=== PATIENT | female | born 1945 | race Caucasian/White ===

== ENCOUNTER → 2016-09-17 | Outpatient (REF) ==
[~2016-09-17] MED LIST: ACIPHEX20 MG PO; AMBIEN10 MG PO; ASPIRIN E.C. 8181 MG PO; B-121000 MCG PO; BENAZEPRIL20 MG PO; BLADDER MEDICATION; BUPIVACAINE; BUPROBAN150 MG PO; CALCIUM CARBON500 MG PO; CALCIUM1 CAP PO; CARAFATE 1GM1 G PO; CARDI-OMEGA1000 MG PO; CEFTIN500 MG PO; CYANOCOBAL1000 MCG/1 IM; CYMBALTA 30MG30 MG PO; CYMBALTA 60MG60 MG PO; CYMBALTA60 M1 PO; CYMBALTA60 MG PO; DESYREL 50MG50 MG PO; DIALUDIDPCA ICA; DULCOLAX S10 MG/SUPP; DULCOLAX TAB5 MG PO; DULCOLAX10 MG RC; ENTOCORT EC3 MG PO; FAMILY PHARMAC325 MG PO; FERROUS SULFAT325 M2 PO; HALDOL .5M0.5 MG/TAB PO; HYDROCODONE/APAP; K-DUR20 MEQ PO; KLONOPIN 0.5MG0.5 MG PO; KLOR-CON 1010 MEQ; KLOR-CON 1010 MEQ PO; KLOR-CON M2020 MEQ PO; LASIX 20MG TABL20 MG PO; LASIX 40MG TABL40 MG PO; LASIX20 MG PO; LEVAQUIN 5500 MG/TA1 PO; LIORESAL 1010 MG/TAB PO; LIORESAL I INT; LOMOTIL 0.025 M1 TAB PO; LUNESTA 1MG TAB1 MG PO; LUNESTA3 MG PO; LYRICA 100MG C100 M1 PO; LYRICA 50MG CAP50 MG PO; MACROBID 1100 MG/CAP PO; MAG-OX 400400 MG/TAB PO; MILK OF MA400 MG/51 PO; MULTI VITAMINS1 TAB PO; MULTIPLE VITAMI1 CAP PO; MULTIVITAMIN1 TA1 PO; MYLANTA 150 ML150 M1 PO; NORCO 325 MG-51 TAB PO; NORVASC2.5 MG PO; OMEGA 31000 MG PO; OMEPRAZOLE DR20 MG PO; OS-CAL 500500 M1 PO; OSCAL 500 TAB500 MG PO; OSCAL 500MG/VI500 MG PO; PENTASA500 MG PO; PERCOCET 325 MG1 TA2 PO; PERCOCET 325 MG1 TAB PO; POTASSIUM CH2 MEQ/ML PO; PREDNISONE20 MG PO; RECLAST5 MG/100 M; RECLAST5 MG/100 M IV; ROXICODONE5 MG PO; SEE INSTRUCTIONS IT; SYNTHROID 0.0.025 MG PO; SYNTHROID0.05 MG/TA PO; SYNTHROID0.075 MG/T PO; SYNTHROID0.1 MG/TAB PO; TRAZADONE HYDR100 MG PO; TRAZODONE50 MG PO; TYLENOL 500MG500 MG PO; TYLENOL SINUS 31 TAB PO; TYLENOL SU650 MG/SUP RC; UNABLE; VANCOCIN H125 MG/CAP PO; VANCOMYCIN PO; VITAMIN B1100 MCG/ML IM; VITAMIN B11000 MCG/M IM; VITAMIN C BUFF500 MG PO; VITAMIN D1000 IU PO; VITAMIN D2000 I1 PO; VITAMIN D32000 I1 PO; VITAMINC500CH PO; WELLBUTRIN XL150 MG PO; XARELTO10 MG PO; [UNRECOGNIZED DRUG - OTHER] INT
[2016-09-17 18:06] LABS: ADJUSTED CALCIUM 9.8 mg/dL (8.4-10.2); ALBUMIN 2.1 gm/dL (3.5-5.0); BILIRUBIN,TOTAL 0.3 mg/dL (0.0-1.0); CALCIUM 8.3 mg/dL (8.4-10.2); CREATININE, serum 1.6 mg/dL (0.52-1.25); POTASSIUM 3.4 mmol/L (3.4-5.0)
[2016-09-17 18:18] LABS: BASO # 0.1 (0.0-0.2); BASO % 0.6 % (0.0-2.0); EOS # 0.2 (0.0-0.7); EOS % 2.1 % (0-4.0); GRAN # 5.7 (1.4-6.5); LYMPH # 2.1 (1.2-3.4); MEAN CELL VOLUME 95 fl (80.0-100.0); MEAN CORPUSCULAR HGB CONC 31 g/dl (33.0-37.0); MEAN PLATELET VOLUME 10.7 fl (7.4-10.4); MONO # 0.8 (0.1-0.6); MONO % 8.8 % (1.7-9.3); PLATELET COUNT 400 K/mm3 (130-400); REDCELL DISTRIBUTION WIDTH-CV 15.9 % (11.5-14.5); WHITE BLOOD COUNT 8.9 K/mm3 (4.8-10.8)
[2016-09-17 18:19] LABS: HEMATOCRIT 27.5 % (37.0-47.0); HEMOGLOBIN 8.6 g/dl (12.5-16.0); MEAN CORPUSCULAR HEMOGLOBIN 30 pg (27.0-31.0)
== END ==
LOC: ZLAB.STJ 17:40
PROVIDERS: Family Medicine
DX: Z01.89 Encounter for other specified special examinations (principal)

== ENCOUNTER 2017-12-04 18:40 | Inpatient (IN) | payer MEDICARE, BC, OTHER ==
[~2017-12-04] VITALS: Ht 165.1 cm; Wt 68.9 kg
[~2017-12-04 18:40] MED LIST changes: -KLOR-CON 1010 MEQ
[2017-12-04 19:46] LABS: BASO % 0.3 % (0.0-2.0); EOS % 0.2 % (0-4.0); GRAN # 9.6 (1.4-6.5); GRAN % 76.4 % (42.2-75.2); LYMPH # 2.1 (1.2-3.4); LYMPH % 16.4 % (20.0-51.0); MEAN CELL VOLUME 98 fl (80.0-100.0); MEAN CORPUSCULAR HGB CONC 32 g/dl (33.0-37.0); MEAN PLATELET VOLUME 9.7 fl (7.4-10.4); MONO # 0.8 (0.1-0.6); MONO % 6.3 % (1.7-9.3); PLATELET COUNT 239 K/mm3 (130-400); RED BLOOD COUNT 3.36 M/mm3 (4.10-5.30); REDCELL DISTRIBUTION WIDTH-CV 14.5 % (11.5-14.5)
[2017-12-04 19:47] LABS: HEMOGLOBIN 10.5 g/dl (12.5-16.0); MEAN CORPUSCULAR HEMOGLOBIN 31 pg (27.0-31.0)
[2017-12-04 19:52] LABS: PROTHROMBIN TIME 12.1 SECONDS (9.7-12.8)
[2017-12-04 19:57] LABS: ALANINE AMINOTRANSFERASE 36 U/L (9-52); ALBUMIN 3.4 gm/dL (3.5-5.0); ALKALINE PHOSPHATASE 97 U/L (50-136); ANION GAP 13 mmol/L (7-16); AST,SGOT 23 U/L (15-37); BILIRUBIN,TOTAL 0.4 mg/dL (0.0-1.0); BLOOD UREA NITROGEN 28 mg/dL (7-17); CALCIUM 8.7 mg/dL (8.4-10.2); CARBON DIOXIDE 19 mmol/L (22-30); CHLORIDE 109 mmol/L (98-107); CREATINE KINASE 260 U/L (30-135); CREATININE, serum 2.39 mg/dL (0.52-1.25); GLUCOSE 106 mg/dL (74-106); SODIUM 141 mmol/L (137-145); TOTAL PROTEIN 6.9 gm/dL (6.4-8.2)
[2017-12-04 20:08] LABS: TROPONIN-I < 0.012 ng/mL (0.000-0.034)
[2017-12-04 20:30] LABS: COLLECTION METHOD CLEAN CATCH
[2017-12-04 20:42] LABS: MUCOUS Present /lpf; PH 5 (5-8); SQUAMOUS EPITHELIAL None Seen /hpf; URINE APPEARANCE Clear; URINE BACTERIA None Seen /hpf; URINE BILIRUBIN Negative (NEGATIVE); URINE BLOOD 2+ (NEGATIVE); URINE COLOR Yellow; URINE GLUCOSE Negative (NEGATIVE); URINE KETONE Negative (NEGATIVE); URINE LEUKOCYTE ESTERASE Negative (NEGATIVE); URINE NITRATE Negative (NEGATIVE); URINE PROTEIN(semi-quant) Negative (NEGATIVE); URINE UROBILINOGEN Negative (NEGATIVE)
[2017-12-04] MEDS ORDERED: LASIX 20MG TABL20 MG PO (21:53)
[2017-12-04] MEDS ORDERED: DIALUDIDPCA IL (21:55)
[2017-12-04] MEDS ORDERED: LIORESAL I2000 MCG/1 IL (21:57)
[2017-12-04] MEDS ORDERED: MAGNESIUM250 M1 PO (21:59)
[2017-12-04 22:16] VITALS: BP 125/53; PULSE 69; TEMP 97.4
[2017-12-05] VITALS (7 sets, daily range): BP systolic 96–128; BP diastolic 38–63; PULSE 69–86; TEMP 97.3–98.8
[2017-12-05 07:47] LABS: BASO # 0.1 (0.0-0.2); BASO % 0.4 % (0.0-2.0); EOS # 0.2 (0.0-0.7); EOS % 1.8 % (0-4.0); GRAN # 8.1 (1.4-6.5); GRAN % 72.8 % (42.2-75.2); LYMPH % 18.2 % (20.0-51.0); MEAN CELL VOLUME 99 fl (80.0-100.0); MEAN CORPUSCULAR HGB CONC 32 g/dl (33.0-37.0); MEAN PLATELET VOLUME 9.8 fl (7.4-10.4); MONO # 0.7 (0.1-0.6); MONO % 6.4 % (1.7-9.3); PLATELET COUNT 251 K/mm3 (130-400); RED BLOOD COUNT 3.11 M/mm3 (4.10-5.30); REDCELL DISTRIBUTION WIDTH-CV 14.5 % (11.5-14.5)
[2017-12-05 07:48] LABS: HEMATOCRIT 30.8 % (37.0-47.0); HEMOGLOBIN 9.7 g/dl (12.5-16.0); MEAN CORPUSCULAR HEMOGLOBIN 31 pg (27.0-31.0)
[2017-12-05 08:01] LABS: ALBUMIN 2.9 gm/dL (3.5-5.0); BILIRUBIN,TOTAL 0.3 mg/dL (0.0-1.0); C-REACTIVE PROTEIN 5.5 mg/dL (0.0-0.9); CALCIUM 8.1 mg/dL (8.4-10.2); CHOLESTEROL RISK RATIO 2.7; CREATININE, serum 1.9 mg/dL (0.52-1.25); POTASSIUM 3.4 mmol/L (3.4-5.0); TOTAL PROTEIN 6.1 gm/dL (6.4-8.2)
[2017-12-05 14:11] LABS: FOLATE (FOLIC ACID) 18.8 ng/mL (7.0-31.4)
[2017-12-05 22:24] LABS: AMMONIA < 9 umol/L (11-35)
[2017-12-05 22:37] LABS: ARTERIAL BLD GAS O2 SATURATION 93.3 % (92-100); ARTERIAL BLD GAS TCO2 CT 19.9; ARTERIAL BLOOD GAS BASE EXCESS -6.8 (-2-2); ARTERIAL BLOOD GAS HCO3 18.8 meq/L (22-26); ARTERIAL BLOOD GAS PCO2 37.4 mmHg (35-45); ARTERIAL BLOOD GAS PO2 68.3 mmHg (80-100); ARTERIAL BLOOD GAS pH 7.32 (7.35-7.45)
[2017-12-06] VITALS (7 sets, daily range): BP systolic 118–153; BP diastolic 55–79; PULSE 53–90; TEMP 97.5–98
[2017-12-06 06:54] LABS: BASO % 0.4 % (0.0-2.0); EOS # 0.1 (0.0-0.7); EOS % 1.3 % (0-4.0); GRAN # 6.6 (1.4-6.5); LYMPH # 1.9 (1.2-3.4); LYMPH % 19.9 % (20.0-51.0); MEAN CELL VOLUME 101 fl (80.0-100.0); MEAN CORPUSCULAR HGB CONC 31 g/dl (33.0-37.0); MEAN PLATELET VOLUME 10.9 fl (7.4-10.4); MONO # 0.8 (0.1-0.6); PLATELET COUNT 247 K/mm3 (130-400); RED BLOOD COUNT 3.16 M/mm3 (4.10-5.30); REDCELL DISTRIBUTION WIDTH-CV 14.5 % (11.5-14.5)
[2017-12-06 07:07] LABS: CALCIUM 8.3 mg/dL (8.4-10.2); CREATININE, serum 1.59 mg/dL (0.52-1.25); PHOSPHOROUS 3.3 mg/dL (2.5-4.5); POTASSIUM 3.2 mmol/L (3.4-5.0)
[2017-12-06 07:13] LABS: HEMOGLOBIN 9.9 g/dl (12.5-16.0); MEAN CORPUSCULAR HEMOGLOBIN 31 pg (27.0-31.0)
[2017-12-06 23:35] LABS: RPR (VDRL) Non-reactive (())
[2017-12-07 00:29] LABS: ANA SCREEN with REFLEX Positive (Negative)
[2017-12-07 04:50] VITALS: BP 141/62; PULSE 81; TEMP 98.8
[2017-12-07 06:38] LABS: BASO % 0.5 % (0.0-2.0); EOS # 0.2 (0.0-0.7); EOS % 2.4 % (0-4.0); GRAN % 62.7 % (42.2-75.2); LYMPH # 2.1 (1.2-3.4); MEAN CELL VOLUME 99 fl (80.0-100.0); MEAN CORPUSCULAR HGB CONC 32 g/dl (33.0-37.0); MEAN PLATELET VOLUME 10.2 fl (7.4-10.4); MONO # 0.6 (0.1-0.6); MONO % 8.1 % (1.7-9.3); PLATELET COUNT 282 K/mm3 (130-400); RED BLOOD COUNT 3.07 M/mm3 (4.10-5.30); REDCELL DISTRIBUTION WIDTH-CV 14.5 % (11.5-14.5)
[2017-12-07 06:42] LABS: HEMATOCRIT 30.3 % (37.0-47.0); HEMOGLOBIN 9.6 g/dl (12.5-16.0); MEAN CORPUSCULAR HEMOGLOBIN 31 pg (27.0-31.0)
[2017-12-07 06:48] LABS: CALCIUM 8.9 mg/dL (8.4-10.2); CREATININE, serum 1.49 mg/dL (0.52-1.25); MAGNESIUM 1.9 mg/dL (1.6-2.3)
[2017-12-07 07:08] LABS: POTASSIUM 2.6 mmol/L (3.4-5.0)
[2017-12-07 07:42] VITALS: BP 137/72; PULSE 61; TEMP 98.6
[2017-12-07 11:51] VITALS: BP 153/63; PULSE 62; TEMP 98.1
[2017-12-07 16:16] VITALS: PULSE 64; TEMP 98.6
[2017-12-07 19:40] VITALS: BP 120/58; PULSE 70; TEMP 97.9
[2017-12-08 00:31] VITALS: BP 155/75; PULSE 62; TEMP 97.5
[2017-12-08 04:24] VITALS: BP 149/81; PULSE 85; TEMP 97.7
[2017-12-08 08:29] LABS: BASO # 0.1 (0.0-0.2); BASO % 0.6 % (0.0-2.0); EOS # 0.2 (0.0-0.7); EOS % 2.4 % (0-4.0); GRAN # 5.1 (1.4-6.5); GRAN % 63.7 % (42.2-75.2); LYMPH % 25.1 % (20.0-51.0); MEAN CELL VOLUME 98 fl (80.0-100.0); MEAN CORPUSCULAR HGB CONC 32 g/dl (33.0-37.0); MEAN PLATELET VOLUME 9.6 fl (7.4-10.4); MONO # 0.6 (0.1-0.6); MONO % 7.8 % (1.7-9.3); PLATELET COUNT 283 K/mm3 (130-400); RED BLOOD COUNT 3.35 M/mm3 (4.10-5.30); REDCELL DISTRIBUTION WIDTH-CV 14.5 % (11.5-14.5)
[2017-12-08 08:30] LABS: HEMATOCRIT 32.8 % (37.0-47.0); HEMOGLOBIN 10.4 g/dl (12.5-16.0); MEAN CORPUSCULAR HEMOGLOBIN 31 pg (27.0-31.0)
[2017-12-08 08:35] LABS: CALCIUM 8.7 mg/dL (8.4-10.2); CREATININE, serum 1.61 mg/dL (0.52-1.25); POTASSIUM 3.2 mmol/L (3.4-5.0)
[2017-12-08 08:57] VITALS: BP 160/81; PULSE 87; TEMP 98.4
[2017-12-08 12:20] VITALS: BP 144/68; PULSE 87; TEMP 98.9
[2017-12-08 16:23] VITALS: BP 151/69; PULSE 81; TEMP 98.1
[2017-12-08 20:43] VITALS: BP 157/80; PULSE 90
[2017-12-09 04:00] VITALS: BP 145/70; PULSE 71; TEMP 97.7
[2017-12-09 07:04] LABS: BASO % 0.5 % (0.0-2.0); EOS # 0.3 (0.0-0.7); EOS % 3.9 % (0-4.0); GRAN # 5.5 (1.4-6.5); GRAN % 65.9 % (42.2-75.2); LYMPH # 1.8 (1.2-3.4); LYMPH % 21.1 % (20.0-51.0); MEAN CELL VOLUME 98 fl (80.0-100.0); MEAN CORPUSCULAR HGB CONC 32 g/dl (33.0-37.0); MONO # 0.7 (0.1-0.6); PLATELET COUNT 281 K/mm3 (130-400); RED BLOOD COUNT 3.29 M/mm3 (4.10-5.30); REDCELL DISTRIBUTION WIDTH-CV 14.6 % (11.5-14.5)
[2017-12-09 07:06] LABS: CALCIUM 8.3 mg/dL (8.4-10.2); CREATININE, serum 1.52 mg/dL (0.52-1.25)
[2017-12-09 07:38] LABS: POTASSIUM 2.8 mmol/L (3.4-5.0)
[2017-12-09 07:42] LABS: HEMATOCRIT 32.1 % (37.0-47.0); HEMOGLOBIN 10.1 g/dl (12.5-16.0); MEAN CORPUSCULAR HEMOGLOBIN 31 pg (27.0-31.0)
[2017-12-09 08:16] VITALS: BP 161/72; PULSE 94; TEMP 98.7
[2017-12-09] MEDS ORDERED: MIRTAZAPINE7.5 MG PO (09:39)
[2017-12-09 13:05] VITALS: BP 125/84; PULSE 79; TEMP 97.7
[2017-12-09 16:15] VITALS: BP 125/60; PULSE 74; TEMP 99.9
[2017-12-09 19:44] VITALS: BP 143/70; PULSE 87; TEMP 98.7
[2017-12-09 23:23] VITALS: BP 143/73; PULSE 81; TEMP 98.2
[2017-12-10 04:04] VITALS: BP 144/70; PULSE 76; TEMP 97.6
[2017-12-10 07:40] LABS: BASO % 0.4 % (0.0-2.0); EOS # 0.3 (0.0-0.7); EOS % 3.9 % (0-4.0); GRAN # 5.1 (1.4-6.5); GRAN % 62.1 % (42.2-75.2); LYMPH # 2.1 (1.2-3.4); LYMPH % 25.1 % (20.0-51.0); MEAN CELL VOLUME 97 fl (80.0-100.0); MEAN CORPUSCULAR HGB CONC 32 g/dl (33.0-37.0); MEAN PLATELET VOLUME 10.3 fl (7.4-10.4); MONO # 0.7 (0.1-0.6); PLATELET COUNT 260 K/mm3 (130-400); RED BLOOD COUNT 3.03 M/mm3 (4.10-5.30)
[2017-12-10 07:46] LABS: HEMATOCRIT 29.4 % (37.0-47.0); HEMOGLOBIN 9.4 g/dl (12.5-16.0); MEAN CORPUSCULAR HEMOGLOBIN 31 pg (27.0-31.0)
[2017-12-10 07:51] LABS: CALCIUM 8.5 mg/dL (8.4-10.2); CREATININE, serum 1.62 mg/dL (0.52-1.25)
[2017-12-10 08:34] VITALS: BP 118/50; PULSE 60; TEMP 97.5
[2017-12-10] MEDS ORDERED: KLOR-CON 1010 MEQ PO (09:22)
[2017-12-10] MEDS ORDERED: FLONASE NASAL S16 GM NS (09:22)
[2017-12-10] MEDS ORDERED: ASPIRIN 81M81 MG/TA2 PO (09:23)
[2017-12-10 10:42] VITALS: BP 118/50; PULSE 60; TEMP 97.5
== END 2017-12-10 11:19 | DRG 683 ==
LOC: COL.ER 18:40 → MEDICAL 20:44
PROVIDERS: Emergency Medicine; Internal Medicine; Nurse Practitioner Family; Physician Assistant
DX: N17.9 Acute kidney failure, unspecified (principal); E87.2 Acidosis; K50.90 Crohn's disease, unspecified, without complications; F11.20 Opioid dependence, uncomplicated; F33.1 Major depressive disorder, recurrent, moderate; I12.9 Hypertensive chronic kidney disease with stage 1 through stage 4 chronic kidney disease, or unspecified chronic kidney disease; N18.9 Chronic kidney disease, unspecified; Z87.891 Personal history of nicotine dependence; G89.29 Other chronic pain; E86.0 Dehydration; T40.2X5S Adverse effect of other opioids, sequela; E87.6 Hypokalemia; E16.2 Hypoglycemia, unspecified
CPT/HCPCS: 99223-AI; 99232-AI; 99239; C9113; J1630; J1644; J2060; J3411; J3475; J3480; J7030; J7042; J7121

== ENCOUNTER → 2018-04-26 | Outpatient (CLI) | payer MEDICARE, BC, OTHER ==
[~2018-04-26] MED LIST changes: +ASPIRIN 81M81 MG/TA2 PO; +DIALUDIDPCA IL; +FLONASE NASAL S16 GM NS; +LIORESAL I2000 MCG/1 IL; +MAGNESIUM250 M1 PO; +MIRTAZAPINE7.5 MG PO
== END ==
LOC: COL.RAD 10:00
DX: N28.89 Other specified disorders of kidney and ureter (principal); J98.09 Other diseases of bronchus, not elsewhere classified; S22.080A Wedge compression fracture of T11-T12 vertebra, initial encounter for closed fracture; S32.010A Wedge compression fracture of first lumbar vertebra, initial encounter for closed fracture; N18.4 Chronic kidney disease, stage 4 (severe); Z96.641 Presence of right artificial hip joint; Z90.710 Acquired absence of both cervix and uterus; Z98.890 Other specified postprocedural states

== ENCOUNTER → 2019-07-26 | Outpatient (CLI) | payer MEDICARE, BC, OTHER | LOC: COL.RAD 07-21 11:00 | DX: K50.00 Crohn's disease of small intestine without complications (principal); K44.9 Diaphragmatic hernia without obstruction or gangrene; M43.8X5 Other specified deforming dorsopathies, thoracolumbar region; M41.85 Other forms of scoliosis, thoracolumbar region; Z98.890 Other specified postprocedural states; Z96.641 Presence of right artificial hip joint; Z90.710 Acquired absence of both cervix and uterus; Z98.1 Arthrodesis status; Z96.9 Presence of functional implant, unspecified ==

== ENCOUNTER → 2022-06-07 | Outpatient (CLI) | payer MEDICARE, BC, OTHER | LOC: ZCOL.LAB 17:21 | DX: Z01.89 Encounter for other specified special examinations (principal) ==